=== PATIENT | male | born 1990 | race Two or more races ===

== ENCOUNTER 2019-06-10 00:56 | Emergency (ER) | payer SELFPAY ==
[~2019-06-10] VITALS: Ht 177.8 cm; Wt 74.8 kg
[2019-06-10] MEDS ORDERED: diphenhydrAMINE HCL 50 MG/ML VIAL IM ONE (01:00)
[2019-06-10] MEDS ORDERED: LORAZEPAM INJ 2 MG/ML VIAL IM ONE (01:00)
[2019-06-10] MEDS ORDERED: HALOPERIDOL LACTATE INJ 5 MG/ML VIAL IM ONE (01:00)
[2019-06-10] MEDS ORDERED: HALOPERIDOL LACTATE INJ 5 MG/ML VIAL ONE (01:04)
[2019-06-10] MEDS ORDERED: diphenhydrAMINE HCL 50 MG/ML VIAL ONE (01:04)
[2019-06-10] MEDS ORDERED: LORAZEPAM INJ 2 MG/ML VIAL ONE (01:04)
--- NOTE | 2019-06-10 01:05 | NUR ---
PT BIB EMS AND [employer] FOUND INSIDE [facility] RAIL STATION ELEVATOR NAKED. BIZARRE BEHAVIOR. PT ON MONITOR IN BED 13 WITH SITTER AT BEDSIDE. WILL CONTINUE TO MONITOR.
--- NOTE | 2019-06-10 01:31 | NUR ---
PHLEB AT BEDSIDE FOR LAB DRAW
[2019-06-10 01:38] LABS: BASOPHILS # (AUTO) 0.2 /CMM (0.0-0.2); BASOPHILS % (AUTO) 2.1 % (0.0-2.0); EOSINOPHILS % (AUTO) 0.4 % (0.0-6.0); HEMATOCRIT 45 % (39-51); LYMPHOCYTES # (AUTO) 1.4 /CMM (0.8-4.8); LYMPHOCYTES % (AUTO) 17.2 % (20.0-44.0); MEAN CORPUSCULAR HGB CONC 35 g/dl (31.0-36.0); MEAN CORPUSCULAR VOLUME 90 fL (80-96); MONOCYTES # (AUTO) 0.6 /CMM (0.1-1.30); MONOCYTES % (AUTO) 7.5 % (2.0-12.0); NEUTROPHILS # (AUTO) 6.1 /CMM (1.8-8.9); NEUTROPHILS % (AUTO) 72.8 % (43.0-81.0); PLATELET COUNT (AUTO) 289 /CMM (150-450); RED BLOOD CELL COUNT(AUTO) 5.04 MIL/uL (4.5-6.0); WHITE BLOOD COUNT (AUTO) 8.4 K/uL (4.3-11.0)
[2019-06-10 01:50] LABS: ALANINE AMINOTRANSFERASE 17 U/L (12-78); ALBUMIN 4.5 g/dL (3.4-5.0); ALCOHOL, BLOOD < 3 mg/dL (0-0); ALKALINE PHOSPHATASE 89 U/L (46-116); ASPARTATE AMINOTRANSFERASE 23 U/L (15-37); BILIRUBIN,DIRECT 0.2 mg/dL (0.0-0.2); BILIRUBIN,TOTAL 0.8 mg/dL (0.2-1.0); CALCIUM, SERUM 9.4 mg/dL (8.5-10.1); CARBON DIOXIDE 23 mmol/L (21-32); CHLORIDE 100 mmol/L (98-107); CREATININE 1.3 mg/dL (0.6-1.3); GLUCOSE 114 mg/dL (74-106); POTASSIUM 3.5 mmol/L (3.5-5.1); SODIUM SERUM 136 mmol/L (136-145); TOTAL PROTEIN, SERUM 8.2 g/dL (6.4-8.2); UREA NITROGEN, BLOOD 22 mg/dL (7-18)
[2019-06-10 01:51] LABS: ACETAMINOPHEN 0 ug/ml (10-30); SALICYLATE 0.3 mg/dL (2.8-20.0)
[2019-06-10 02:34] LABS: APPEARANCE,URINE Slightly Cloudy (CLEAR); BILIRUBIN,URINE SMALL (NEGATIVE); BLOOD, URINE Trace-intact Ery/uL (NEGATIVE); COLOR,URINE Yellow (YELLOW); KETONES,URINE Trace (NEGATIVE); LEUKOCYTE ESTERASE ,URINE Negative (NEGATIVE); NITRITE, URINE Negative (NEGATIVE); PH,URINE 5.5 (5.0-8.0); PROTEIN,URINE 30 mg/dl (NEGATIVE); UGLUCOSE Negative (NEGATIVE); UROBILINOGEN,URINE 0.2 EU/dL (0.2)
--- NOTE | 2019-06-10 04:10 | NUR ---
Patient is resting comfortably in bed with eyes closed. Easily aroused. VSS.
[2019-06-10 04:41] LABS: BACTERIA,URINE Few /HPF (None Seen); SQUAMOUS EPITHELIAL CELL,UR Few /HPF (None Seen)
[2019-06-10 04:42] LABS: CALCIUM OXALATE CRYSTALS,UR Few /HPF (None Seen)
--- NOTE | 2019-06-10 07:30 | NUR ---
AT BEDSIDE FOR RE-EVALUATION.
--- NOTE | 2019-06-10 14:08 | NUR ---
CALLED FOR FOOD TRAY
--- NOTE | 2019-06-10 14:47 | NUR ---
RE-EVAL BY DR WARREN,PSYCH EVAL REQUESTED BY DR WARREN
--- NOTE | 2019-06-10 14:50 | NUR ---
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
--- NOTE | 2019-06-10 15:19 | NUR ---
CALLED [facility]S FOR PANTS FOR PATIENT.
--- NOTE | 2019-06-10 15:37 | NUR ---
Social service consult requested by Dr. Gaona for drug overdose. Pt. is a 28 year old male who was brought to [facility] at 12:58AM by [facility] [employer] [facility] bizar[facility]. Patient was initially not cooperative and agitated requiring Ativan, Haldol and Benadryl in the ED. SW met with the pt. bedside. Pt. is alert and oriented x 4. Pt. is cooperative with SW during the assessment. Pt. is ambulatory. Pt. states he lives with 3 roommates [id number] in [place]. Pt's emergency contact is his father John Harp . His father resides in [place]. Pt. states he thinks he has Schizophrenia but has not been officially diagnosed. Pt. is not taking any medications because he does not believe in them. Pt. goes on a tangent talking about the love of his life Kyleigh, the government especially the federal government is out to get him. Pt's toxicology showed positive for cannabinoids. Pt. denies any other drug use. Pt. denies suicidal and homicidal ideations and visual/auditory hallucinations at this time. Pt. states he has had visual hallucinations in the past but not currently. Pt. would like to be discharged back home. SW encouraged pt. to go to see a psychiatrist and gave him the following mental health clinic referrals: [facility] ; [facility] . Pt. was provided with clothing and shoes. Pt. will be transported home via taxi to [id number] in [place]. No other social service needs are requested at this time. SW is available, if needed.
--- NOTE | 2019-06-10 16:10 | NUR ---
Patient discharged to home in stable condition. Written and verbal after care instructions given. Patient verbalizes understanding of instruction.
[2019-06-10 16:11] VITALS: BP 128/73
== END 2019-06-10 16:11 | disposition home or self-care (01) ==
LOC: EDBD 00:58 → ER 00:58
DX: F99 Mental disorder, not otherwise specified (principal); R45.1 Restlessness and agitation; F12.10 Cannabis abuse, uncomplicated; F20.9 Schizophrenia, unspecified; F19.10 Other psychoactive substance abuse, uncomplicated; F10.99 Alcohol use, unspecified with unspecified alcohol-induced disorder; Y90.0 Blood alcohol level of less than 20 mg/100 ml
CPT/HCPCS: 36415; 80048; 80076; 80305; 80307; 80329; 81001; 85025; 96372 ×3; 99284; G0480; J1200; J1630; J2060; 81000-TC